=== PATIENT | male | born 1925 | race Caucasian/White ===

== ENCOUNTER 2016-12-01 01:04 | Day surgery (SDC) | payer MEDICARE, OTHER ==
[~2016-12-01] VITALS: Ht 172.7 cm; Wt 89.8 kg
[2016-12-01] VITALS (14 sets, daily range): BP systolic 113–208; BP diastolic 60–103; PULSE 62–67; RESP 16–24; O2SAT 94–97
[~2016-12-01 01:04] MED LIST: ACET1TAB42 PO; AMIO200T6 PO; CHOL100045 PO; CYAN50TA2 PO; HYDR12.5 PO; LOSA25TA21 PO; METR500T PO; NITR0.4T SL; OMEG1CAP5 PO
--- NOTE | 2016-12-01 08:30 | NUR ---
ADMISSION NOTE MALE PT ADMITTED FOR PACEMAKER. DISCUSSED PLAN OF CARE WITH PT AND FAMILY. SEE ADMIT AND FLOW SHEET
[2016-12-01 09:16] LABS: BASOPHILS % (AUTO) 0.6 % (0-3); EOSINOPHILS % (AUTO) 0.1 % (0-5); Mean Corpuscular Hemoglobin 27.2 pg (27.0-35.0); Mean Corpuscular Volume 87.4 fL (81-100); Platelet Count 243 bil/L (150-400)
[2016-12-01 09:33] LABS: INR 0.95 ratio
[2016-12-01] MEDS ORDERED: Heparin 10,000 Unit/1,000 mL NS Premix IV ONE (09:41)
[2016-12-01] MEDS ORDERED: Bupivacaine-MPF 0.5% 30 mL Inj ONE (09:41)
[2016-12-01] MEDS ORDERED: 0.9% Sodium Chloride 250 ML ONE (09:41)
[2016-12-01] MEDS ORDERED: CeFAZolin 2 Gm/50 mL D5W Duplex Bag IV ONE (09:46)
[2016-12-01] MEDS ORDERED: ACET-2605 PO (10:11)
[2016-12-01] MEDS ORDERED: fentaNYL-PF 50 mCg/mL 2 mL Inj ONE (10:16)
[2016-12-01] MEDS ORDERED: Sodium Chloride LOK Flush 10 mL Syringe IVFLUSH PRN (10:50)
[2016-12-01] MEDS ORDERED: 0.9% Sodium Chloride 1,000 ML IV SCH (10:50)
[2016-12-01] MEDS ORDERED: CeFAZolin Inj 2 GM in IV Premix 1 EACH IV SCH (10:55)
[2016-12-01] MEDS ORDERED: 0.9% Sodium Chloride 250 ML IV PRN (12:33)
[2016-12-01] MEDS ORDERED: 0.9% Sodium Chloride 1,000 ML IV PRN (12:33)
[2016-12-01] MEDS ORDERED: Ondansetron 2 mg/mL 2 mL Inj IVPUSH PRN (12:35)
[2016-12-01] MEDS ORDERED: Atropine 1 mg/10 mL (Code) Syringe IVPUSH PRN (12:35)
--- NOTE | 2016-12-01 12:45 | NUR ---
POST PROCEDURE NOTE RETURNED FROM PRODUCTION SUPPORT ANALYST. SEE FLOW SHEET
[2016-12-01] MEDS ORDERED: [UNRECOGNIZED DRUG - OTHER] (13:11)
--- NOTE | 2016-12-01 13:57 | DRSVH ---
PROCEDURE: X-RAY CHEST ONE VIEW, PORTABLE ([id number]) INDICATIONS: POST PACEMAKER TECHNIQUE: One view of the chest was acquired. COMPARISON: [facility], , CHEST 1VW (PORTABLE), 07/27/2014, 16:15. FINDINGS: Surgical changes and devices: Pacemaking device and dual chamber leads appear normal. Lungs and pleura: No pleural effusions or pneumothorax. Lungs are clear considering reduced inspira tory volume and chronic mild elevation of the right hemidiaphragm. Mediastinum: Mediastinal contours appear normal. Heart size is normal. Bones and chest wall: No suspicious bony lesions. Overlying soft tissues appear unremarkable. IMPRESSION: No pneumothorax after pacemaker placement. Dictated by: Bubba Downey M.D. on 12/01/2016 at 13:55 Approved by: Bubba Downey M.D. on 12/01/2016 at 13:55
--- NOTE | 2016-12-01 15:29 | NUR ---
TRANSFER NOTE TO [facility]. REPORT GIVEN
--- NOTE | 2016-12-01 18:10 | NUR ---
Transfer from [facility] Pt. was transferred to room 3001 MOC and telephone transfer report was obtained before Pt. arrived on the unit. Pt. arrived at about 1550. Pt. arrived in no apparent distress and states soreness on left upper chest where pacer was placed. Dressing is C/D/I and sling is on Pts left arm. Pt. understands to not move left arm as much as possible and to not left anything heavy. Pts. blood pressure was on the hypertensive side and Dr. Mitchell was notified. Pt. has family at bedside will continue to monitor.
[2016-12-01] MEDS: HYDROcodone-APAP 5-325 mg Tablet PO PRN ×2 (19:04→23:34)
[2016-12-01] MEDS: Omega-3 Fatty Acids 1,000 mg Capsule PO SCH (19:25)
[2016-12-02 01:34] VITALS: BP 161/82; PULSE 60; RESP 16; O2SAT 96
--- NOTE | 2016-12-02 05:32 | OUT PROC ---
[address] [address] PROCEDURE NOTE PATIENT: SOUMYA STRONG : 1925 MR#: [id number] ADMIT: 12/01/2016 JOB ID: [id number] DATE OF PROCEDURE: 12/01/2016 PROCEDURE: 1. Dual-chamber permanent pacemaker implantation. 2. Ultrasound guided venous access. INDICATIONS: Sick sinus syndrome-paroxysmal atrial fibrillation-tachybrady syndrome. CONSENT: The patient was explained the risks, benefits, and alternatives of procedure. Informed signed consent was obtained and placed in the chart. PROCEDURE: Patient was brought to the laboratory chemical assistant and placed on the cath table. Left infraclavicular area was prepped and draped in the usual sterile manner. Ultrasound of the left subclavian vein was performed. Anatomical landmarks were established. Lidocaine 1% was infiltrated in the left infraclavicular area to achieve adequate topical anesthesia. Subsequently under direct ultrasound guidance subclavian vein was accessed. Two accesses were obtained separately. The J-wire was left in the subclavian vein. Subsequently, a 3-inch long incision was made in the left infraclavicular area. The skin and subcutaneous layer was dissected. The subcutaneous fat was dissected and prepectoralis fascia was identified. Subsequently, with a gentle roll of finger the pacemaker pocket was further extended, both superiorly and inferiorly over the incision. The pacemaker wires were pulled out of the skin and into the pocket. Two sets of venous sheaths were advanced over the J wire and placed in the subclavian vein. Subsequently, a right ventricular lead 58 cm, model 5076 Parkzzz serial #[id number] was advanced under direct fluoroscopy. The straight stylus was exchanged with a curved stylus. The lead was advanced into the right ventricular outflow tract. The stylus was again exchanged with a straight stylus and the lead was advanced into the right ventricular apex. The injury current was inadequate with low sensing parameters, therefore a septal site was identified and was actively fixated. Adequate sensing and pacing parameters were obtained. The lead was actively fixated. Adequate slack was given to the lead. The venous sheath was peeled off. The right ventricular lead was anchored to the prepectoral fascia with a standard sleeve. To make sure the lead was functioning optimally it was again interrogated with cables and senior java programmer analyst. The right atrial lead 346394 cm, serial #[id number] was advanced under direct fluoroscopy and placed in the right atrial appendage using the right atrial stylus. Good sensing and pacing parameters were obtained. The lead was actively fixated into the right atrial appendage. The preformed right atrial stylus was withdrawn under direct fluoroscopy. The straight stylus was advanced into the right atrial lead. Subsequently, the venous sheath was peeled off and the right atrial lead was anchored to the prepectoral fascia. Just before closing I reinterrogated the right atrial lead and found that it was under sensing. Therefore the sleeve was released and the right atrial lead was repositioned and actively fixated. The lead was anchored to the prepectoral fascia in a standard manner. The pacemaker pocket was irrigated with antibiotic solution. The pacemaker generator was connected to the right atrial and right ventricular leads. The generator model [id number] serial [id number] Parkzzz. The generator was placed in the pacemaker pocket and the generator was anchored to the prepectoral fascia. The subcutaneous layer was closed with continuous sutures. The skin and subcuticular layer was closed with 4-0 absorbable sutures. No bleeding was noted. After the procedure final fluoroscopy images were taken. COMPLICATIONS: None. TOTAL FLUOROSCOPY TIME: Please see the event log. BLOOD LOSS: Less than 10 cc. DEVICE IDENTIFICATION: [employer] MEASURED PARAMETERS: The right atrium P-wave of 1.2 mV, capture threshold was 0.4 V at 50 msec, impedance of 555 ohms. Right ventricle bipolar R-wave of 8.8, a capture threshold 0.5 volts at 50 msec with an impedance of 858 ohms. PROGRAMMED PARAMETERS: Pacing mode DDR lower rate of 60, upper rate of 130, VR paced AV interval at 320 msec. CONCLUSION: Successful dual-chamber permanent pacemaker implantation. Cc: [facility] [place], [place] [address] [facility]
[2016-12-02] MEDS: HYDROcodone-APAP 5-325 mg Tablet PO PRN (06:48)
[2016-12-02 06:59] VITALS: BP 191/96; PULSE 61; RESP 16; O2SAT 97
--- NOTE | 2016-12-02 08:00 | DIS ---
[address] [address] DISCHARGE SUMMARY PATIENT: SOUMYA STRONG : 1925 MR#: [id number] ADMIT: 12/01/2016 JOB ID: [id number] DIS: DATE OF DISCHARGE: 12/02/2016 DATE OF ADMISSION: 12/01/2016 REASONS FOR ADMISSION: Post pacemaker implantation. INDICATION FOR PACEMAKER: 1. Sick sinus syndrome. 2. Paroxysmal atrial fibrillation. 3. Tachybrady syndrome. 4. Hypertension. 5. Coronary artery disease. 6. Chronic interstitial lung disease. 7. Hypertension. PROCEDURES PERFORMED DURING THIS HOSPITALIZATION: 1. Dual-chamber permanent pacemaker implantation. 2. Chest x-ray. HOSPITAL COURSE: Patient was admitted on December 01, 2016 after successful dual-chamber permanent pacemaker implantation. The patient underwent dual-chamber device with [employer]. Good sensing and pacing parameters were obtained after the implant. Patient was taken out of the rn labor delivery in stable condition. No other complaints were noted. Postprocedure chest x-ray demonstrated no pneumothorax. Patient was observed and was kept in left arm sling. The [place] was [place] in [place] [facility] Elevated blood pressures were noted. The labs drawn during this hospitalization showed a hemoglobin of 10.4, hematocrit of 33.4, and platelets of 243. Chemistry panel was unremarkable with sodium of 134, potassium of 4.2, chloride of 98. Bicarb 23. BUN and creatinine are 15 and 0.8, and glucose of 100. On the day of discharge, device was interrogated by the [employer] c s s representative. Device interrogation demonstrated optimal pacemaker function both for the atrial and ventricular lead. The P-wave was measured at 1.4 mV and R-wave was measured at more than 12 mV with 0.5 msec mV of pacing capture threshold at 50 msec on both atrium and ventricle. Impedances were stable. The telemetry demonstrated no significant runs. PHYSICAL EXAMINATION: His wound site appears very healthy there is no swelling, discharge, or bleeding noted. DISCHARGE MEDICATIONS: 1. Aspirin 81 mg daily. 2. Losartan 25 mg twice daily. 3. Amiodarone 100 mg daily. 4. Hydrochlorothiazide 12.5 mg daily. 5. Metoprolol succinate 50 mg daily. 6. Keflex 500 mg t.i.d. INSTRUCTIONS: 1. Patient was given instructions to take care of his wounds. 2. Patient was given instructions how to link his device to the [facility]. 3. Patient is given followup appointment to see me in the office. 4. His daughter was counseled regarding his wound care. Patient was instructed to keep his wound site dry.
[2016-12-02 09:25] VITALS: PULSE 60
[2016-12-02 10:11] VITALS: BP 187/74; PULSE 62; RESP 16; O2SAT 96
[2016-12-02] MEDS: Omega-3 Fatty Acids 1,000 mg Capsule PO SCH (10:42)
[2016-12-02] MEDS ORDERED: AMIO100T4 PO (12:03)
--- NOTE | 2016-12-02 12:09 | DRSVH ---
PROCEDURE: X-RAY CHEST, TWO VIEWS ([id number]) INDICATIONS: Post pacemaker implant TECHNIQUE: 2 views of the chest were acquired. COMPARISON: [facility], CR, XR CHEST 1VW (PORTABLE), 12/01/2016, 13:11. FINDINGS: Surgical changes and devices: Stable positioning of left cardiac pacer. Lungs and pleura: No pleural effusions or pneumothorax. Lungs are clear, aside from right basilar s ubsegmental atelectasis.. Mediastinum: Mediastinal contours are normal. Heart size is normal. Bones and chest wall: No suspicious bony abnormalities. Soft tissues appear unremarkable. IMPRESSION: Stable chest post left pacer placement. Dictated by: Curtis Bal [facility] Interpreted: Tanvir Hall MD on 12/02/2016 at 11:17 Approved by: Tanvir Hall M.D. on 12/02/2016 at 12:07
--- NOTE | 2016-12-02 12:42 | NUR ---
DISCHARGE Patient discharged home at 1240, off floor in wheelchair accompanied by RN and family. Two IVs discontinued intact, all belongings returned. Vitals stable, denies pain, incision CDI, and in no distress. All instructions for diet, activity, medications, prescription and follow-up reviewed with patient and daughter who report understanding.
== END 2016-12-02 12:40 | disposition home or self-care (01) ==
LOC: SOUO 01:04 → MPC 15:23 → SOUO 12-02 12:40
PROVIDERS: ATTEND Internal Medicine Cardiovascular Disease
DX: I49.5 Sick sinus syndrome (principal); I48.0 Paroxysmal atrial fibrillation; I10 Essential (primary) hypertension; I25.10 Atherosclerotic heart disease of native coronary artery without angina pectoris; J84.9 Interstitial pulmonary disease, unspecified; Z72.0 Tobacco use; Z79.82 Long term (current) use of aspirin
CPT/HCPCS: 33208; 36415; 71010; 71020; 80048; 85025; 85610; 93005; 99152; 99153; C1769; C1785; C1892; C1898; J0690; J1644; J2250; J3010